=== PATIENT | male | born 1995 | race Caucasian/White ===

== ENCOUNTER 2021-02-27 14:45 | Emergency (ER) | payer MEDICAID ==
[~2021-02-27] VITALS: Ht 177.8 cm; Wt 111.0 kg
[2021-02-27] MEDS ORDERED: TOPUD PO (15:01)
[2021-02-27] MEDS ORDERED: IBUP-1653 PO (15:01)
[2021-02-27] MEDS ORDERED: KETOROLAC 30MG/ML VIAL IM ONE (15:30)
[2021-02-27] MEDS ORDERED: NAPR-681 MT (16:26)
[2021-02-27] MEDS ORDERED: T3 PO (16:26)
[2021-02-27 16:50] VITALS: BP 142/89
== END 2021-02-27 16:51 | disposition home or self-care (01) ==
LOC: ER 14:45
DX: S39.012A Strain of muscle, fascia and tendon of lower back, initial encounter (principal); X58.XXXA Exposure to other specified factors, initial encounter; Y93.89 Activity, other specified; Y92.89 Other specified places as the place of occurrence of the external cause; Y99.8 Other external cause status
CPT/HCPCS: 72100; 96372; 99283; J1885